=== PATIENT | male | born 1950 | race Native Hawaiian/Other Pacific Islander ===

== ENCOUNTER 2018-10-11 07:41 | Outpatient (CLI) | payer OTHER ==
[2018-10-11] MEDS ORDERED: ASPIRIN PO (08:13)
[2018-10-11] MEDS ORDERED: METO-837 PO (08:13)
[2018-10-11] MEDS ORDERED: NITR0.4S2 SL (08:14)
[2018-10-11] MEDS ORDERED: GLIP10TA55 PO (08:15)
[2018-10-11] MEDS ORDERED: EQ STOOL SOFTE100 MG PO (08:16)
[2018-10-11] MEDS ORDERED: FERATE27 MG PO (08:16)
[2018-10-11] MEDS ORDERED: CENTRUM SILVER PO (08:21)
[2018-10-11] MEDS ORDERED: FISH OIL PEARL PO (08:23)
[2018-10-11] MEDS ORDERED: LANTUS100 UNIT/M SC ×2 (08:25)
== END 2018-10-11 07:52 | disposition short-term general hospital (02) ==
LOC: AMB 07:41
DX: R41.82 Altered mental status, unspecified (principal); E16.2 Hypoglycemia, unspecified
CPT/HCPCS: A0425; A0427

== ENCOUNTER 2018-10-11 07:56 | Emergency (ER) | payer OTHER ==
[~2018-10-11] VITALS: Ht 180.3 cm; Wt 97.1 kg
[2018-10-11] MEDS ORDERED: METO-837 PO (08:13)
[2018-10-11] MEDS ORDERED: ASPIRIN PO (08:13)
[2018-10-11] MEDS ORDERED: NITR0.4S2 SL (08:14)
[2018-10-11] MEDS ORDERED: GLIP10TA55 PO (08:15)
[2018-10-11] MEDS ORDERED: EQ STOOL SOFTE100 MG PO (08:16)
[2018-10-11] MEDS ORDERED: FERATE27 MG PO (08:16)
[2018-10-11] MEDS ORDERED: CENTRUM SILVER PO (08:21)
[2018-10-11] MEDS ORDERED: FISH OIL PEARL PO (08:23)
[2018-10-11] MEDS ORDERED: LANTUS100 UNIT/M SC ×2 (08:25)
[2018-10-11 08:41] LABS: PLATELET COUNT 124 K/uL (142-355)
[2018-10-11 09:28] LABS: POTASSIUM 3.8 mmol/L (3.6-5.2)
[2018-10-11 11:45] VITALS: TEMP 98.5
[2018-10-11 15:19] VITALS: BP 105/56
== END 2018-10-11 15:20 | disposition home or self-care (01) ==
LOC: ED 07:56
PROVIDERS: Emergency Medicine
DX: E11.649 Type 2 diabetes mellitus with hypoglycemia without coma (principal)
CPT/HCPCS: 80053; 85027; 96360; 96375; 99284; J1940; J2405

== ENCOUNTER 2018-12-13 20:44 | Outpatient (CLI) | payer OTHER ==
[~2018-12-13 20:44] MED LIST: ASPIRIN PO; CENTRUM SILVER PO; EQ STOOL SOFTE100 MG PO; FERATE27 MG PO; FISH OIL PEARL PO; GLIP10TA55 PO; LANTUS100 UNIT/M SC; METO-837 PO; NITR0.4S2 SL
== END 2018-12-13 21:04 | disposition short-term general hospital (02) ==
LOC: AMB 20:44
DX: R06.09 Other forms of dyspnea (principal)
CPT/HCPCS: A0425; A0427